=== PATIENT | female | born 1995 | race African-American/Black ===

== ENCOUNTER 2020-09-23 15:39 | Emergency (ER) | payer MEDICAID, OTHER ==
[~2020-09-23] VITALS: Ht 160 cm; Wt 122.5 kg
[2020-09-23 15:45] VITALS: BP 152/98
== END 2020-09-23 20:35 | disposition left against medical advice (07) ==
LOC: EDBD 15:39 → ER 15:44
DX: Z04.3 Encounter for examination and observation following other accident (principal); Z53.21 Procedure and treatment not carried out due to patient leaving prior to being seen by health care provider